=== PATIENT | male | born 1980 | race Caucasian/White ===

== ENCOUNTER 2018-01-09 21:32 | Emergency (ER) | payer MEDICAID ==
[2018-01-09] MEDS ORDERED: VANCOMYCIN HCL INJ 1000 MG VIAL IV ONE (23:49)
[2018-01-09] MEDS ORDERED: CEFTRIAXONE INJ 1000 MG VIAL IV ONE (23:49)
[2018-01-10 00:30] LABS: ABSOLUTE EOSINOPHILS # (AUTO) 0.3 10^3/uL (0.0-0.6); ABSOLUTE LYMPHOCYTES (AUTO) 2.6 10^3/uL (0.5-4.7); ABSOLUTE MONOCYTES (AUTO) 0.6 10^3/uL (0.1-1.4); ABSOLUTE NEUT (AUTO) 6.4 10^3/uL (1.7-8.2); BASOPHILS % (AUTO) 0.5 % (0-2); EOSINOPHILS % (AUTO) 3.2 % (0-6); HEMATOCRIT 44.2 % (37.9-51.0); HEMOGLOBIN 15.2 g/dL (13.5-17.0); LYMPHOCYTES % (AUTO) 26.6 % (13-45); MEAN CORPUSCULAR HEMOGLOBIN 30.6 pg (27.0-33.4); MEAN CORPUSCULAR HGB CONC 34.4 g/dL (32.0-36.0); MEAN CORPUSCULAR VOLUME 89 fl (80-97); MONOCYTES % (AUTO) 5.7 % (3-13); PLATELET COUNT 221 10^3/uL (150-450); RED BLOOD COUNT 4.96 10^6/uL (4.35-5.55); RED CELL DISTRIBUTION WIDTH 13.4 % (11.5-14.0); TOTAL CELLS COUNTED % (AUTO) 100 %; WHITE BLOOD COUNT 9.9 10^3/uL (4.0-10.5)
[2018-01-10 00:39] LABS: ALANINE AMINOTRANSFERASE 35 U/L (21-72); ALBUMIN 3.3 g/dL (3.5-5.0); ALKALINE PHOSPHATASE 80 U/L (38-126); ANION GAP 8 (5-19); ASPARTATE AMINO TRANSFERASE 20 U/L (17-59); BILIRUBIN,DIRECT 0.1 mg/dL (0.0-0.4); BILIRUBIN,TOTAL 0.1 mg/dL (0.2-1.3); BLOOD UREA NITROGEN 9 mg/dL (7-20); CALCIUM 9.3 mg/dL (8.4-10.2); CARBON DIOXIDE 28 mmol/L (22-30); CHLORIDE 103 mmol/L (98-107); GLUCOSE 133 mg/dL (75-110); LIPASE 112.4 U/L (23-300); POTASSIUM 3.3 mmol/L (3.6-5.0); SODIUM 139.4 mmol/L (137-145)
--- NOTE | 2018-01-10 01:01 | RADIOLOGY REPORT (SQ) ---
EXAM DESCRIPTION: US ABDOMEN DOPPLER LIMITED CLINICAL HISTORY: 37 years Male, RUQ abdominal pain Comparison: None. LIMITATIONS: Bowel gas artifact. FINDINGS: Gallbladder is nondistended (recent p.o. intake), negative sonographic Brand's test, liver, a 0.3-cm diameter common bile duct, no intrahepatic ductal dilation, 12-cm right kidney, partially obscured pancreas, visualized vasculature/abdominal aorta, and no significant ascites appear otherwise unremarkable. IMPRESSION: No acute findings. Limitation.
--- NOTE | 2018-01-10 02:21 | ER Document Report ---
ED General - General Chief Complaint: Abdominal Pain Stated Complaint: ABDOMINAL PAIN Time Seen by Provider: 01/09/18 23:10 Notes: Patient is a 37-year-old male who presents with 2 different complaints. First complaint is of some redness around the knee. The triage note says and 5 the patient actually does not remember any ants biting him. He was just assuming that maybe it was an ant bite to his left knee. Says he does have some redness and swelling. He said the swelling was much worse a day ago but he took some antibiotic that his friend had left over from a dental infection. He does not know the name of the antibiotic. Denies any fevers. He says he has full range of motion of his knee without severe pain. Patient second complaint is of some intermittent right upper quadrant pain is worse when he eats. Some nausea but no vomiting. He was seen several weeks ago at the ER in [place] was told that his pain is related to his gallbladder. He was first referred to a surgeon but he said they never called him with referral and therefore is not see a surgeon since then. He denies any fevers so she with this. He says he sometimes has pain when he eats but not always. Again is not any vomiting or diarrhea. TRAVEL OUTSIDE OF THE [place] IN LAST 30 DAYS: No Past Medical History - Social History Smoking Status: Unknown if Ever Smoked Frequency of alcohol use: None Drug Abuse: None Family History: Reviewed & Not Pertinent Patient has suicidal ideation: No Patient has homicidal ideation: No Renal/ Medical History: Denies: Hx Peritoneal Dialysis Review of Systems - Review of Systems Notes: My Normal Review Basic REVIEW OF SYSTEMS: CONSTITUTIONAL : Denies fever, chills, or sweats. Denies recent illness. EENT: Denies eye, ear, throat, or mouth pain or symptoms. Denies nasal or sinus congestion. CARDIOVASCULAR: Denies chest pain. RESPIRATORY: Denies cough, cold, or chest congestion. Denies shortness of breath, difficulty breathing, or wheezing. GASTROINTESTINAL: Right upper quadrant abdominal pain. Some nausea. No vomiting. MUSCULOSKELETAL: Some redness around the right knee.. SKIN: Denies rash or skin lesions. NEUROLOGICAL: Denies altered mental status or loss of consciousness. Denies headache. Denies weakness or paralysis or loss of use of either side. Denies problems with gait or speech. Denies sensory or motor loss. ALL OTHER SYSTEMS REVIEWED AND NEGATIVE. Physical Exam - Notes Notes: General Appearance: Well nourished, alert, cooperative, no acute distress, no obvious discomfort. Well appearing. Vitals: reviewed, See vital signs table. Head: no swelling or tenderness to the head Eyes: PERRL, EOMI, Conjuctiva clear Mouth: No decreasd moisture Throat: No tonsillar inflammation, No airway obstruction, No lymphadenopathy Neck: Supple, no neck tenderness, No thyromegaly Lungs: No wheezing, No rales, No rhonci, No accessory muscle use, good air exchange bilaterally. Heart: Normal rate, Regular rythm, No murmur, no rub Abdomen: Normal BS, soft, No rigidity, mild right upper quadrant abdominal tenderness palpation, No guarding, no rebound, no abdominal masses, no organomegaly Extremities: strength 5/5 in all extremities, good pulses in all extremities, patient has mild swelling around the right knee. He does have some redness erythema that is lacy around the knee and around the lower leg consistent with cellulitis. He has full range of motion of his knee without pain. He is able to fully flex and extend the knee without any difficulty. There is a small scabbed area over the anterior aspect of the knee which is most likely the site of introduction of the infection., no edema. Skin: warm, dry, appropriate color, no rash Neuro: speech clear, oriented x 3, normal affect, responds appropriately to questions. Course - Re-evaluation Re-evalutation: 01/10/18 02:38 Patient does have appears to be cellulitis over the left lower extremity. Appears of started from a scabbed area over his left knee and spread. Is no evidence septic joint and that is full range of motion of his knee is actually able to bear weight and walk without difficulty. Patient symptoms that he has been having regards to his abdominal pain are consistent with that of the gallbladder and that he has recurrent right upper quadrant abdominal pain with eating followed by nausea. He has no signs of infection of the gallbladder at this time his liver enzymes are negative and therefore we will refer him to the surgery clinic for close follow-up and reevaluation. Patient encouraged to return to ER immediately if he has fevers, severe abdominal pain, vomiting, or spreading redness around his right knee. Patient agrees with plan will be discharged home. Dictation of this chart was performed using voice recognition software; therefore, there may be some unintended grammatical errors. - Laboratory Result Diagrams: 01/10/18 00:09 01/10/18 00:09 Laboratory results interpreted by me: 01/10/18 00:09 Potassium 3.3 L Glucose 133 H Total Bilirubin 0.1 L Total Protein 6.0 L Albumin 3.3 L Discharge - Discharge Clinical Impression: Cellulitis Qualifiers: Site of cellulitis: extremity Site of cellulitis of extremity: lower extremity Laterality: left Qualified Code(s): L03.116 - Cellulitis of left lower limb Abdominal pain Qualifiers: Abdominal location: right upper quadrant Qualified Code(s): R10.11 - Right upper quadrant pain Condition: Good Disposition: HOME, SELF-CARE Additional Instructions: Please take the antibiotic as prescribed. Please return to the ER immediately if you develop fevers, vomiting, worsening abdominal pain, or spreading redness on your leg. Please return to the ER immediately if you have pain with flexing and extension of your knee. Please follow up with the surgeon, Dr. Lawrence, in regards to your gallbladder. Please call the office to make a follow up appointment. Stop the antibiotics and return to the ER immediately if you develop a rash or diarrhea. Prescriptions: Cephalexin Monohydrate [Keflex 500 mg Capsule] 500 mg PO BID 7 Days capsule Sulfamethoxazole/Trimethoprim [Bactrim Ds Tablet] 1 each PO BID #14 tablet Forms: Return to Work Referrals: BONITA LAWRENCE MD [JENNY JONES] - Follow up in 3-5 days
[2018-01-10 02:47] VITALS: BP 130/84
== END 2018-01-10 02:47 | disposition home or self-care (01) ==
LOC: ER 21:32
DX: L03.116 Cellulitis of left lower limb (principal); R10.11 Right upper quadrant pain; R11.0 Nausea
CPT/HCPCS: 99284; 96365; 96366; 96367; 36415; 83690; 85025; 80053; 76705; 93976; J0696; J3370

== ENCOUNTER 2018-02-02 09:46 | Day surgery (SDC) | payer MEDICAID ==
[~2018-02-02 09:46] MED LIST: ACETAMINOPHEN 325 MG TABLET PO PRN; CEFOXITIN SODIUM 2 GM in DEXTROSE 5%-WATER 100 ML IV PRN; RINGERS SOLUTION,LACTATED 1,000 ML IV PRN
[2018-02-02 10:29] LABS: APPEARANCE,URINE SLIGHTLY-CLOUDY; BILIRUBIN,URINE NEGATIVE (NEGATIVE); COLOR,URINE YELLOW; GLUCOSE, URINE NEGATIVE (NEGATIVE); KETONES,URINE NEGATIVE (NEGATIVE); LEUKOCYTE ESTERASE,URINE NEGATIVE (NEGATIVE); NITRITE,URINE NEGATIVE (NEGATIVE); PROTEIN,URINE 100 mg/dL (NEGATIVE); URINE SPECIFIC GRAVITY 1.015; UROBILINOGEN,URINE NEGATIVE mg/dL (<2.0)
[2018-02-02] MEDS ORDERED: MIDAZOLAM 2 MG/2 ML INJ ONE (13:51)
[2018-02-02] MEDS ORDERED: FENTANYL CITRATE INJ/PF 250 MCG/5 ML AMPULE ONE (13:51)
[2018-02-02] MEDS ORDERED: PROPOFOL INJ 200 MG/20 ML VIAL IV ONE (13:52)
[2018-02-02] MEDS: BUPIVACAINE HCL 0.25 % INJ/PF (2.5 MG/1 ML) 30 ML VIAL ONE ×2 (14:21→14:32)
[2018-02-02] MEDS ORDERED: HYDROCODONE/ACETAMINOPHEN 10-325 MG TABLET ONE (16:11)
--- NOTE | 2018-02-02 16:17 | Discharge Summary ---
Discharge Summary (SDC) - Discharge Final Diagnosis: symptomatic cholelithiasis, chronic cholecystitis Date of Surgery: 02/02/18 Discharge Date: 02/02/18 Condition: Stable Treatment or Instructions: Okay to shower on Monday. Wash incisions with soap and water. No tub baths 2 weeks. [place] 10/325 mg p.o. every 6 hours as needed pain. Referrals: SEYMOUR MCKEON MD [Primary Care Provider] - Discharge Diet: As Tolerated Respiratory Treatments at Home: Deep Breathing/Coughing, Incentive Spirometer Discharge Activity: No Lifting Over 10 Pounds - 2 weeks Home Care Assistance: None Needed Report the Following to Your Physician Immediately: Shortness of Breath, Nausea , Vomiting, Increase in Pain, Fever over 101 Degrees, Unusual Bleeding, Redness , Swelling, Warmth
--- NOTE | 2018-02-02 16:25 | Operative Report ---
Nonrecallable Operative Report DATE OF SURGERY: 02/02/18 PREOPERATIVE DIAGNOSIS: Symptomatic cholelithiasis, chronic cholecystitis POSTOPERATIVE DIAGNOSIS: Same as above OPERATION: Laparoscopic cholecystectomy SURGEON: DARIELA FIELD ANESTHESIA: GA TISSUE REMOVED OR ALTERED: Gallbladder COMPLICATIONS: None apparent ESTIMATED BLOOD LOSS: Minimal PROCEDURE: Drains/implants: None. Procedure in detail: After informed consent was obtained, the patient was laid in the supine position. The area of the abdomen was prepped and draped in a normal sterile fashion. A 15 blade scalpel was used to create a curvilinear infraumbilical incision within the bounds of a previous scar. Dissection was carried through the subcutaneous tissue using sharp and blunt dissection. The cicatrix was identified, grasped with a Myron clamp, and retracted upwards. The linea alba fascia was incised sharply. The abdomen was entered sharply. The balloon trocar was inserted, and pneumoperitoneum was achieved. Next a subxiphoid 5 mm port was placed under direct laparoscopic visualization. 2 more 5 mm ports were placed in the right upper quadrant in similar fashion. Atraumatic graspers were placed through the 5 mm ports. The gallbladder was retracted cephalad and laterally. Dissection was begun in the triangle of Calot. The cystic artery was found to be coursing anterior to the cystic duct. This is an abnormal location and great care was taken to dissect out the triangle to ensure that no other aberrant anatomy existed. No other aberrant anatomy could be identified. The cystic duct and cystic artery were clipped and cut with laparoscopic instruments once the critical view of safety was obtained. Gallbladder was removed from the liver using Bovie electrocautery. The gallbladder was grasped with a large clamp and pulled out the umbilicus. The camera was reinserted, and the hilum was inspected. The gallbladder fossa was found to be free of any leakage of blood or bile. Once this was confirmed, the 5 mm trochars were removed under direct laparoscopic visualization. The infraumbilical trocar was removed, and pneumoperitoneum was relieved. The infraumbilical fascia was closed using 0 Vicryl suture in [id number] fashion the overlying skin was closed using 4-0 Vicryl Rapide suture in subcuticular fashion. All sponge, instrument, and needle counts were correct 2. Condition: Stable.
[2018-02-02 17:20] VITALS: BP 119/86
== END 2018-02-02 17:15 | disposition home or self-care (01) ==
LOC: OROUT 09:46
PROVIDERS: ATTEND Surgery
DX: K81.1 Chronic cholecystitis (principal); K50.90 Crohn's disease, unspecified, without complications; F17.210 Nicotine dependence, cigarettes, uncomplicated; J45.909 Unspecified asthma, uncomplicated; Z79.899 Other long term (current) drug therapy; Z01.818 Encounter for other preprocedural examination
CPT/HCPCS: 36415; 82962; 84132; 81001; 88304 ×2; 47562; J2250; J0694; J3010; S0020; J2704; 790

== ENCOUNTER 2019-08-01 11:50 | Emergency (ER) | payer SELFPAY ==
[2019-08-01 11:57] VITALS: BP 124/79
--- NOTE | 2019-08-01 13:23 | ER Document Report ---
HPI - HPI Patient complains to provider of: right ankle pain Time Seen by Provider: 08/01/19 13:18 Onset: Other - 07/29/19 Quality of pain: Achy Context: 39-year-old male presents emergency department with complaints of right ankle pain. Reports he fell on July 29 and rolled his ankle. Reports he has a history of fracture to the Paco Jr. ankle. He reports he is kept Carlos wrap on it and elevated but is still swelling still hurts. Associated Symptoms: None Exacerbated by: Walking Relieved by: Denies Similar symptoms previously: No Recently seen / treated by doctor: No Past Medical History - General Information source: Patient - Social History Smoking Status: Current Every Day Smoker Cigarette use (# per day): Yes Frequency of alcohol use: None Drug Abuse: None Lives with: Family Family History: Reviewed & Not Pertinent - Past Medical History Cardiac Medical History: Denies: Hx Coronary Artery Disease, Hx Heart Attack, Hx Hypertension Pulmonary Medical History: Reports: Hx Asthma, Hx Bronchitis, Hx Pneumonia Denies: Hx COPD Neurological Medical History: Reports: Hx Seizures - FROM HYPOGLYCEMIA x2. Denies: Hx Cerebrovascular Accident Renal/ Medical History: Denies: Hx Peritoneal Dialysis Musculoskeletal Medical History: Denies Hx Arthritis Past Surgical History: Reports: Hx Cholecystectomy - Immunizations Hx Diphtheria, Pertussis, Tetanus Vaccination: Yes Vertical Provider Document - CONSTITUTIONAL Agree With Documented VS: Yes Exam Limitations: No Limitations General Appearance: WD/WN, No Apparent Distress - INFECTION CONTROL TRAVEL OUTSIDE OF THE [place] IN LAST 30 DAYS: No - HEENT HEENT: Atraumatic, Normocephalic - NECK Neck: Supple - RESPIRATORY Respiratory: No Respiratory Distress - CARDIOVASCULAR Cardiovascular: Regular Rate - MUSCULOSKELETAL/EXTREMETIES Musculoskeletal/Extremeties: Tender - Right ankle tender to palpate no obvious deformity good pedal pulse, cap refill less than 2 seconds. - NEURO Level of Consciousness: Awake, Alert, Appropriate - DERM Integumentary: Warm, Dry Course - Re-evaluation Re-evalutation: 08/01/19 13:23 39-year-old male presents with right ankle pain after he fell July 29 and rolled his ankle. X-ray ordered 08/01/19 18:16 Ankle X-Ray 08/01/19 13:21 IMPRESSION: Mild lateral ankle soft tissue swelling without acute underlying osseous abnormality. X-ray negative for acute fracture. Patient was instructed on this instructed on rest ice elevated ankle stirrup splint. He was instructed follow-up with orthopedics for continued pain. He verbalized understanding to all instructions. - Vital Signs Vital signs: Temp Pulse Resp BP Pulse Ox 98.0 F 73 16 124/79 99 08/01/19 11:56 08/01/19 11:56 08/01/19 11:56 08/01/19 11:56 08/01/19 11:56 - Diagnostic Test Radiology reviewed: Image reviewed, Reports reviewed Procedures - Immobilization Left Ankle Immobilizer type: Ankle stirrup Performed by: PCT Post-Proc Neuro Vasc Exam: Unchanged from pre-exam Alignment checked and good: Yes Discharge - Discharge Clinical Impression: Right ankle pain Qualifiers: Chronicity: acute Qualified Code(s): M25.571 - Pain in right ankle and joints of right foot Condition: Stable Disposition: HOME, SELF-CARE Instructions: Ankle Stirrup Splint ([facility]), Use of Crutches ([facility]), Use of Rmkb-Mny-Sahvein Ibuprofen ([facility]), Ice & Elevation ([facility]) Additional Instructions: *You have been evaluated for an ankle injury *Your x-ray did not show an acute fracture *Rest/Ice/Elevate your ankle *Maintain the splint *Use your crutches *Follow up with orthopedics within 1 week for recheck *Take Tylenol or Motrin as indicated for pain *Return to ED for worsening condition, changes, needs, concerns Referrals: SEYMOUR MCKEON MD [PEDIATRICS] - Follow up as needed RAYRAY ESCAMILLA MD [ACTIVE PROVISIONAL STAFF] - Follow up as needed EMILY SANDOVAL JR, DO [ACTIVE PROVISIONAL STAFF] - Follow up as needed [facility] [Provider Group] - Follow up as needed
--- NOTE | 2019-08-01 14:44 | RADIOLOGY REPORT (SQ) ---
EXAM DESCRIPTION: ANKLE RIGHT COMPLETE COMPLETED DATE/TIME: 08/01/2019 2:31 pm REASON FOR STUDY: pain, fall COMPARISON: None. NUMBER OF VIEWS: Three views. TECHNIQUE: AP, lateral, and oblique radiographic images acquired of the right ankle. LIMITATIONS: None. FINDINGS: MINERALIZATION: Normal. BONES: No acute fracture or dislocation. Mild cortical irregularity of the medial malleolus may repr esent sequela from old trauma. No worrisome bone lesions. JOINTS: No effusions. SOFT TISSUES: Mild lateral ankle soft tissue swelling. OTHER: Small calcaneal plantar enthesophyte. IMPRESSION: Mild lateral ankle soft tissue swelling without acute underlying osseous abnormality. TECHNICAL DOCUMENTATION: JOB ID: [id number] [employer]- All Rights Reserved Reading location - IP/workstation name: [email or web address]
== END 2019-08-01 15:44 | disposition home or self-care (01) ==
LOC: ER 11:50
DX: M25.571 Pain in right ankle and joints of right foot (principal); F17.210 Nicotine dependence, cigarettes, uncomplicated; Z90.49 Acquired absence of other specified parts of digestive tract
CPT/HCPCS: 99283; 73610; L1902

== ENCOUNTER 2019-10-19 08:45 | Emergency (ER) | payer SELFPAY ==
[2019-10-19 09:45] LABS: ALBUMIN 4.5 g/dL (3.5-5.0); ALCOHOL 130 mg/dL (NONE DETECTED); ALKALINE PHOSPHATASE 88 U/L (38-126); ANION GAP 11 (5-19); ASPARTATE AMINO TRANSFERASE 33 U/L (17-59); BILIRUBIN,DIRECT 0.3 mg/dL (0.0-0.4); BILIRUBIN,TOTAL 0.5 mg/dL (0.2-1.3); BLOOD UREA NITROGEN 4 mg/dL (7-20); CALCIUM 9.3 mg/dL (8.4-10.2); CARBON DIOXIDE 25 mmol/L (22-30); CHLORIDE 105 mmol/L (98-107); GLUCOSE 130 mg/dL (75-110); POTASSIUM 3.5 mmol/L (3.6-5.0); TOTAL PROTEIN 7.6 g/dL (6.3-8.2)
[2019-10-19 09:46] LABS: ABSOLUTE EOSINOPHILS # (AUTO) 0.1 10^3/uL (0.0-0.6); ABSOLUTE LYMPHOCYTES (AUTO) 2.7 10^3/uL (0.5-4.7); ABSOLUTE MONOCYTES (AUTO) 0.7 10^3/uL (0.1-1.4); ABSOLUTE NEUT (AUTO) 6.5 10^3/uL (1.7-8.2); BASOPHILS % (AUTO) 0.3 % (0-2); EOSINOPHILS % (AUTO) 0.7 % (0-6); HEMATOCRIT 48.1 % (37.9-51.0); HEMOGLOBIN 16.8 g/dL (13.5-17.0); LYMPHOCYTES % (AUTO) 26.9 % (13-45); MEAN CORPUSCULAR HEMOGLOBIN 31.8 pg (27.0-33.4); MEAN CORPUSCULAR HGB CONC 34.8 g/dL (32.0-36.0); MEAN CORPUSCULAR VOLUME 91 fl (80-97); MONOCYTES % (AUTO) 7.5 % (3-13); PLATELET COUNT 260 10^3/uL (150-450); RED BLOOD COUNT 5.26 10^6/uL (4.35-5.55); SEGMENTED NEUTROPHILS % (AUTO) 64.6 % (42-78); TOTAL CELLS COUNTED % (AUTO) 100 %
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
[2019-10-19] MEDS ORDERED: NORMAL SALINE 1000 ML 1,000 ML IV ONE (11:35)
--- NOTE | 2019-10-19 12:15 | RADIOLOGY REPORT (SQ) ---
EXAM DESCRIPTION: CT HEAD WITHOUT COMPLETED DATE/TIME: 10/19/2019 12:03 pm REASON FOR STUDY: AMS COMPARISON: None. TECHNIQUE: Axial images acquired through the brain without intravenous contrast. Images reviewed wi th bone, brain and subdural windows. Additional sagittal and coronal reconstructions were generated. Images stored on PACS. All CT scanners at this facility use dose modulation, iterative reconstruction, and/or weight based d osing when appropriate to reduce radiation dose to as low as reasonably achievable (ALARA). [facility]: Dose Right [facility]: CareDose [facility]: Dose Right [facility]: Teradose 4D [facility]: [place] RADIATION DOSE: CT Rad equipment meets quality standard of care and radiation dose reduction techniq ues were employed. CTDIvol: 53.2 mGy. DLP: 1150 mGy-cm. mGy. LIMITATIONS: None. FINDINGS: VENTRICLES: Normal size and contour. CEREBRUM: No masses. No hemorrhage. No midline shift. No evidence for acute infarction. Normal gra y/white matter differentiation. No areas of low density in the white matter. CEREBELLUM: No masses. No hemorrhage. No alteration of density. No evidence for acute infarction. EXTRAAXIAL SPACES: No fluid collections. No masses. ORBITS AND GLOBE: No intra- or extraconal masses. Normal contour of globe without masses. CALVARIUM: No fracture. PARANASAL SINUSES: Mild right sphenoid and left frontal sinus mucosal thickening. SOFT TISSUES: No mass or hematoma. OTHER: No other significant finding. IMPRESSION: NO ACUTE INTRACRANIAL IMAGING FINDINGS. EVIDENCE OF ACUTE STROKE: NO. COMMENT: Quality ID # [id number]: Final reports with documentation of one or more dose reduction techniques (e.g., Automated exposure control, adjustment of the mA and/or kV according to patient size, use of iterative reconstruction technique) TECHNICAL DOCUMENTATION: JOB ID: [id number] 2010 [employer]- All Rights Reserved Reading location - IP/workstation name: [email or web address]
--- NOTE | 2019-10-19 12:16 | RADIOLOGY REPORT (SQ) ---
EXAM DESCRIPTION: CHEST SINGLE VIEW COMPLETED DATE/TIME: 10/19/2019 12:00 pm REASON FOR STUDY: AMS COMPARISON: None. EXAM PARAMETERS: NUMBER OF VIEWS: One view. TECHNIQUE: Single frontal radiographic view of the chest acquired. RADIATION DOSE: NA LIMITATIONS: None. FINDINGS: LUNGS AND PLEURA: No opacities, masses or pneumothorax. No pleural effusion. MEDIASTINUM AND HILAR STRUCTURES: No masses. Contour normal. HEART AND VASCULAR STRUCTURES: Heart normal in size. Normal vasculature. BONES: No acute findings. HARDWARE: None in the chest. OTHER: No other significant finding. IMPRESSION: NO ACUTE RADIOGRAPHIC FINDING IN THE CHEST. TECHNICAL DOCUMENTATION: JOB ID: [id number] 2010 [employer]- All Rights Reserved Reading location - IP/workstation name: [email or web address]
[2019-10-19 12:54] LABS: APPEARANCE,URINE CLEAR; BILIRUBIN,URINE NEGATIVE (NEGATIVE); COLOR,URINE YELLOW; GLUCOSE, URINE NEGATIVE (NEGATIVE); KETONES,URINE NEGATIVE (NEGATIVE); LEUKOCYTE ESTERASE,URINE NEGATIVE (NEGATIVE); NITRITE,URINE NEGATIVE (NEGATIVE); PROTEIN,URINE NEGATIVE (NEGATIVE); URINE SPECIFIC GRAVITY 1.012
[2019-10-19 13:11] LABS: URINE AMPHETAMINES SCREEN UNCONFIRMED POSITIVE; URINE BARBITURATES SCREEN NEGATIVE; URINE BENZODIAZEPINES SCREEN UNCONFIRMED POSITIVE; URINE COCAINE SCREEN UNCONFIRMED POSITIVE; URINE MARIJUANA (THC) SCREEN UNCONFIRMED POSITIVE; URINE METHADONE SCREEN NEGATIVE; URINE PHENCYCLIDINE SCREEN NEGATIVE
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
[2019-10-19 15:40] VITALS: BP 128/72
--- NOTE | 2019-10-21 00:37 | EKG REPORT ---
SEVERITY:- NORMAL ECG - SINUS RHYTHM : Confirmed by: Elias Tillman 21-Oct-2019 00:37:04
== END 2019-10-19 15:01 | disposition home or self-care (01) ==
LOC: ER 08:45
DX: R40.4 Transient alteration of awareness (principal); S50.02XA Contusion of left elbow, initial encounter; S50.01XA Contusion of right elbow, initial encounter; T14.8XXA Other injury of unspecified body region, initial encounter; X58.XXXA Exposure to other specified factors, initial encounter; J45.909 Unspecified asthma, uncomplicated; R31.9 Hematuria, unspecified; Z79.899 Other long term (current) drug therapy; Z87.891 Personal history of nicotine dependence
CPT/HCPCS: 93005; 99285; 96360; 36415; 82962; 80307 ×2; 82550; 83735; 85025; 80053; 81001; 84484; 71045; 70450; 93010; J7030